=== PATIENT | female | born 1960 | race Caucasian/White ===

== ENCOUNTER 2023-03-15 17:39 | Emergency (ER) | payer SELFPAY ==
--- NOTE | ~2023-03-15 | XR_ITS ---
EXAMINATION: XR chest 2V Exam Date/Time: 03/15/2023 18:15 CDT HISTORY: dyspnea , COPD Comparison: None. RESULT: Lines, tubes, and devices: None. Lungs and pleura: Mild scattered reticulonodular opacities, otherwise clear. Cardiomediastinal silhouette: Unremarkable. Other: No acute osseous or upper abdominal finding. IMPRESSION: Pulmonary opacities may represent a component of respiratory bronchiolitis. Reviewed, dictated and finalized at location K.
--- NOTE | 2023-03-15 17:47 | ECG_ITS ---
Measurements Intervals [place] Rate: 96 P: 81 OR: 146 QRS: 59 QRSD: 92 T: 53 QT: 376 QTc: 476 Interpretive Statements SINUS RHYTHM NORMAL ELECTROCARDIOGRAM NO PREVIOUS ECG AVAILABLE FOR COMPARISON Electronically Signed On 03-16-2023 13:16:54 CDT by Rafi Nascimento M.D.
[2023-03-15 17:52] VITALS: PULSE 98; RESP 23
[2023-03-15 17:55] VITALS: BP 106/70; PULSE 105; RESP 22; TEMP 36.8; O2SAT 94
[2023-03-15 17:56] VITALS: BP 114/54; PULSE 100; RESP 21
[2023-03-15 17:59] LABS: Alveolar/Arterial O2 Gradient 191.7 mmHg; Base Excess ABG 4.7 mEq/l (+/-2.0); Carboxyhemoglobin 2.9 % THb (0-2.0); Fractional Inspired Oxygen 44 %; HCO3 ABG 29.3 mEq/l (22.0-26.0); Methemoglobin ABG 0.3 %THb (0-1.5); Oxygen Content ABG 16.7 %vol (16.0-22.0); Oxygen Saturation ABG 95.1 % (95.0-100.0); Oxyhemoglobin 90.6 % THb (90.0-100.0); PCO2 ABG 43.5 mmHg (35.0-45.0); PO2 ABG 72.4 mmHg (80.0-100.0); PO2 FiO2 Ratio Arterial Blood 1.65 %; Reduced Hemoglobin 6.2 %THb (0-5.0); Total Hemoglobin 13.1 g/dL (12.0-18.0); pH ABG 7.446 (7.350-7.450)
[2023-03-15 18:00] VITALS: PULSE 103; RESP 27; O2SAT 99
[2023-03-15 18:00] LABS: Device NASAL CANNULA; Site Drawn RIGHT BRACHIAL
[2023-03-15 18:02] VITALS: BP 104/53; PULSE 100; RESP 25
[2023-03-15 18:15] VITALS: PULSE 97; RESP 17
[2023-03-15 18:25] LABS: Basophils Percent Auto 0.7 % (0.2-1.2); Eosinophils Absolute Auto 0.6 K/mm3 (0-0.3); Eosinophils Percent Auto 9.6 % (0-4.4); Hematocrit 37.4 % (37.0-47.0); Hemoglobin 12.1 g/dL (12.0-15.0); Immature Granulocyte Absolute 0.02 K/mm3 (0.00-0.031); Immature Granulocyte Percent A 0.3 % (0-0.5); Immature Platelet Fraction Pct 1.7 % (0.9-11.2); Lymphocytes Percent Auto 17.4 % (18.3-44.2); Mean Corpuscular HGB Conc 32.4 g/dl (32-36); Mean Corpuscular Volume 98.9 fl (80-100); Mean Platelet Volume 9.5 fl (7.4-10.4); Monocytes Absolute Auto 0.5 K/mm3 (0.1-0.6); Monocytes Percent Auto 9.4 % (2.6-8.5); Neutrophils Absolute Auto 3.6 K/mm3 (1.3-6.7); Neutrophils Percent Auto 62.6 % (45.5-73.1); Platelet Count Result 82 k/mm3 (150-375); Red Blood Count 3.78 M/mm3 (4.2-5.4); Red Cell Distribution Width 16.2 % (11.5-14.5); White Blood Count 5.8 K/mm3 (4.5-10.0)
--- NOTE | 2023-03-15 18:30 | ED.SOB ---
HPI - SOB/Dyspnea General Chief Complaint: Shortness of Breath/Dyspnea Stated Complaint: SOb Time Seen by Provider: 03/15/23 18:13 History of Present Illness HPI Narrative: 62-year-old female with a history of COPD on chronic O2 presenting with shortness of breath. Patient reportedly was shoplifting in a grocery store when she was caught and she started fleeing from the employees. She became short of breath so they brought her in for evaluation. On my evaluation, patient states that she is leaving. She states that her ride is here and she needs to go. States that she wants to go to [facility]. Denies complaints at this time. Review of Systems Review of Systems: All systems reviewed & are unremarkable except as noted in HPI and below Exam Narrative: GENERAL: Disheveled, chronically ill-appearing, on 4 L nasal cannula HEAD: Normocephalic, atraumatic. EYES: PERRLA and EOMI. ENT: Nares clear, no rhinorrhea or epistaxis. Mucous membranes moist. NECK: Supple. CHEST: Diminished bilaterally HEART: Regular rate and rhythm ABDOMEN: Soft, nontender, nondistended EXTREMITIES: Normal range of motion. No edema. SKIN: Warm, dry, no rash. NEURO: No focal deficits. Alert and oriented x3. PSYCH: Normal mood and affect. Course Vital Signs Vital signs: Vital Signs Pulse Rate 98 03/15/23 17:52 Respiratory Rate 23 H 03/15/23 17:52 Temperature 98.3 F 03/15/23 17:55 Pulse Rate 97 03/15/23 18:15 Respiratory Rate 17 03/15/23 18:15 Blood Pressure 104/53 L 03/15/23 18:02 Pulse Oximetry 99 03/15/23 18:00 Oxygen Delivery Nasal Cannula 03/15/23 18:00 Oxygen Flow Rate 4 03/15/23 18:00 MDM - SOB/Dyspnea MDM Narrative Medical decision making narrative: Patient is a 62-year-old female presenting with shortness of breath after exertion. Patient is saturating well on her 4 L nasal cannula. By the time I evaluated her, the patient states that she is leaving. She wants to leave AGAINST MEDICAL ADVICE. Discussed the risks of leaving AGAINST MEDICAL ADVICE which includes decompensation, , loss of vision or limb. Patient voices understanding. She is alert and oriented x4. She has decision-making capacity. Patient signed AMA forms and ambulated out of the department steadily. Differential Diagnosis Differential diagnosis: Likely acute exacerbation of chronic obstructive airways disease, community acquired pneumonia and asthma with exacerbation Medical Records Attestation: I reviewed the patient's medical records. Lab Data 03/15/23 17:52 03/15/23 17:52 Labs: Lab Results 03/15/23 03/15/23 Range/Units 17:52 17:55 WBC 5.8 (4.5-10.0) K/mm3 RBC 3.78 L (4.2-5.4) M/mm3 Hgb 12.1 (12.0-15.0) g/dL Hct 37.4 (37.0-47.0) % MCV 98.9 (80-100) fl MCH 32.0 (26-34) pg MCHC 32.4 (32-36) g/dl RDW 16.2 H (11.5-14.5) % Plt Count 82 L (150-375) k/mm3 MPV 9.5 (7.4-10.4) fl Immature Gran % (Auto) 0.3 (0-0.5) % Neut % (Auto) 62.6 (45.5-73.1) % Lymph % (Auto) 17.4 L (18.3-44.2) % Drew % (Auto) 9.4 H (2.6-8.5) % Eos % (Auto) 9.6 H (0-4.4) % Baso % (Auto) 0.7 (0.2-1.2) % Lymph # (Auto) 1.00 (0.9-3.2) K/mm3 Drew # (Auto) 0.5 (0.1-0.6) K/mm3 Eos # (Auto) 0.6 H (0-0.3) K/mm3 Baso # (Auto) 0.0 (0.0-0.1) K/mm3 Abs Immat Gran (auto) 0.02 (0.00-0.031) K/mm3 Absolute Neuts (auto) 3.6 (1.3-6.7) K/mm3 Absolute Nucleated RBC 0.0 (0.0-0.012) K/mm3 Nucleated RBC % 0.0 (0.0-0.2) % Platelet Estimate Decreased (Adequate) % Immature Plt Fraction 1.7 (0.9-11.2) % Schistocytes None seen (NORMAL) Methemoglobin 0.3 (0-1.5) %THb Sodium 138 (137-145) mmol/L Potassium 3.8 (3.4-5.0) mmol/L Chloride 104 (98-107) mmol/L Carbon Dioxide 31 H (22-30) mmol/L Anion Gap 3 L (8-16) mmol/L BUN 12 (7-17) mg/dL Creatinine 0.50 L (0.7-1.0) mg/dL Estim Creat Clear Calc 118 ml/min Estimated GF
[2023-03-15 18:35] LABS: Alanine Aminotransferase 31 U/L (6-35); Albumin Level 2.9 g/dL (3.5-5.1); Alkaline Phosphatase 104 U/L (38-126); Anion Gap 3 mmol/L (8-16); Aspartate Amino Transferase 45 U/L (14-36); Bilirubin,Total 1.3 mg/dL (0.2-1.3); Blood Urea Nitrogen 12 mg/dL (7-17); Carbon Dioxide 31 mmol/L (22-30); Chloride 104 mmol/L (98-107); Estimated CRCL calculation 118 ml/min; Estimated Glomerular Filt Rate > 60; Glucose 91 mg/dL (65-110); Potassium 3.8 mmol/L (3.4-5.0); Sodium 138 mmol/L (137-145)
[2023-03-15 18:46] LABS: Platelet Estimate Decreased (Adequate); Schistocytes None Seen (NORMAL)
== END 2023-03-15 20:56 | disposition left against medical advice (07) ==
LOC: ANHED 18:48
PROVIDERS: Emergency Provider Emergency Medicine
DX: J44.1 Chronic obstructive pulmonary disease with (acute) exacerbation (principal); Z99.81 Dependence on supplemental oxygen
CPT/HCPCS: 36415; 36600; 71046; 80053; 82375; 82805; 83050; 85025; 85055; 93005; 99284